=== PATIENT | male | born 2000 | race Two or more races ===

== ENCOUNTER 2021-05-03 16:24 | Emergency (ER) | payer OTHER ==
[~2021-05-03] VITALS: Ht 167.6 cm; Wt 65.8 kg
--- NOTE | 2021-05-03 16:40 | NUR ---
[id number] FOR MEDICAL CLEARANCE PRIOR TO BOOKING, C/O BILAT HAND AND L HIP PAIN, +ABRASION TO L HAND. PATIENT A/OX4, BREATHING EVEN AND UNLABORED, NOS OB NOTED, PLACED IN BED, NO DISTRESS NOTED.
[2021-05-03] MEDS ORDERED: IBUP-1955 PO (17:53)
--- NOTE | 2021-05-03 18:11 | NUR ---
Patients abrasion cleansed. Patient a/ox4, in stable condition. Images provided to patient and PD. Patient discharged to PD (in custody) in stable condition. Written and verbal after care instructions given. Patient and PD verbalizes understanding of instruction.
[2021-05-03 19:13] VITALS: BP 129/81
--- NOTE | 2021-05-03 19:13 | NUR ---
Patient discharged to home in stable condition. Written and verbal after care instructions given. Patient verbalizes understanding of instruction. Patient no longer in custody. Left in stable condition, denies any pain, doesn't want to wait for his covid result, MD notified.
== END 2021-05-03 19:13 | disposition home or self-care (01) ==
LOC: ER 16:34
DX: M79.642 Pain in left hand (principal); M79.641 Pain in right hand; M25.551 Pain in right hip; S60.512A Abrasion of left hand, initial encounter; W19.XXXA Unspecified fall, initial encounter; Y92.89 Other specified places as the place of occurrence of the external cause; M25.511 Pain in right shoulder; Z20.822 Contact with and (suspected) exposure to COVID-19; M79.661 Pain in right lower leg
CPT/HCPCS: 73030; 73120 ×2; 73502; 73590; 87426; 99284; A6403; C9803